=== PATIENT | male | born 1995 | race African-American/Black ===

== ENCOUNTER 2017-05-15 20:36 | Emergency (ER) | payer MEDICAID ==
[~2017-05-15] VITALS: Ht 200.7 cm; Wt 91.0 kg
[~2017-05-15 20:36] MED LIST: ADVAIR; ALBU25PO2; BACLOFEN; ESCI5TAB PO; SINGULAIR; TOPIRAMATE; XOPENEX; ZYPREXA
[2017-05-16] MEDS ORDERED: IBUPROFEN 600MG TABLET PO ONE (02:15)
[2017-05-16] MEDS ORDERED: TRAMADOL 50MG TABLET PO ONE (05:15)
[2017-05-16 05:19] VITALS: BP 128/84
== END 2017-05-16 05:22 | disposition home or self-care (01) ==
LOC: ER 21:24
DX: S09.90XA Unspecified injury of head, initial encounter (principal); S00.83XA Contusion of other part of head, initial encounter; F31.9 Bipolar disorder, unspecified; F43.10 Post-traumatic stress disorder, unspecified; F17.200 Nicotine dependence, unspecified, uncomplicated; F12.10 Cannabis abuse, uncomplicated; Y04.0XXA Assault by unarmed brawl or fight, initial encounter; Y93.89 Activity, other specified; Y92.89 Other specified places as the place of occurrence of the external cause; Y99.8 Other external cause status; Z88.6 Allergy status to analgesic agent; Z98.890 Other specified postprocedural states
CPT/HCPCS: 70100; 72125; 99284; Z7610

== ENCOUNTER 2017-08-05 11:23 | Emergency (ER) | payer MEDICAID ==
[~2017-08-05] VITALS: Ht 200.7 cm; Wt 104.0 kg
[2017-08-05] MEDS ORDERED: IBUPROFEN 600MG TABLET PO ONE (17:00)
[2017-08-05] MEDS ORDERED: LIDOCAINE HCL 2% JELLY 5ML TOP ONE (17:00)
[2017-08-05 17:24] VITALS: BP 118/77
== END 2017-08-05 18:24 | disposition home or self-care (01) ==
LOC: ER 11:23
DX: L02.31 Cutaneous abscess of buttock (principal); R05 Cough; F20.9 Schizophrenia, unspecified; F31.9 Bipolar disorder, unspecified; F12.10 Cannabis abuse, uncomplicated; F17.210 Nicotine dependence, cigarettes, uncomplicated; Z88.6 Allergy status to analgesic agent
CPT/HCPCS: 71010; 99283